=== PATIENT | male | born 1945 | race Caucasian/White ===

== ENCOUNTER → 2022-10-13 | Day surgery (SDC) | payer MEDICARE, MEDICAID ==
[~2022-10-13] VITALS: Ht 167.6 cm; Wt 67.0 kg
[~2022-10-13] MED LIST: AGGR1CAP PO; ALBU17IN INH; ASPI325T PO; ASPI81TA26 PO; ATOR40TA75 PO; BABY81CH PO; CLOP75TA2 PO; ELIQ5TAB PO; INHALER INH; LIDOCAINE 2% INJ 100 MG/5 ML SYRINGE As Ordered ONE; LIPI1TAB2 PO; LISI10TA22 PO; METO1TAB32 PO; METOPROLOL PO; MULTIVIT; MULTTAB4 PO; NITR0.4S SL; NITR4TASL SL; NS 1,000 ML IV ONE; OMEP20CA3 PO; OMEP40CA4 PO; PLAV75TA2; PRIN10TA PO; SIMIVASTATIN PO; TRAZ50TA2 PO; TREL1AER IN; VITA500T40 PO; VITMTA PO; inhaler INH; propofoL 200 MG/20 ML VIAL As Ordered ONE
[2022-10-13 09:46] VITALS: TEMP 98.6
[2022-10-13 10:19] VITALS: BP 124/60; O2SAT 92
== END | disposition home or self-care (01) ==
LOC: M OPP 07:47
PROVIDERS: ATTEND Internal Medicine Gastroenterology
DX: Z86.010 Personal history of colon polyps (principal); Z12.0 Encounter for screening for malignant neoplasm of stomach; Z12.2 Encounter for screening for malignant neoplasm of respiratory organs; Z12.5 Encounter for screening for malignant neoplasm of prostate; K57.30 Diverticulosis of large intestine without perforation or abscess without bleeding; K64.8 Other hemorrhoids; Z79.01 Long term (current) use of anticoagulants; Z79.02 Long term (current) use of antithrombotics/antiplatelets; Z79.82 Long term (current) use of aspirin; Z79.83 Long term (current) use of bisphosphonates; Z79.51 Long term (current) use of inhaled steroids; Z79.52 Long term (current) use of systemic steroids; Z95.5 Presence of coronary angioplasty implant and graft; Z86.73 Personal history of transient ischemic attack (TIA), and cerebral infarction without residual deficits